=== PATIENT | male | born 1945 | race Caucasian/White ===

== ENCOUNTER 2018-08-14 02:24 | Outpatient (RCR) | payer MEDICARE, BC, SELFPAY ==
[2018-08-14] MEDS: Normal Saline Flush 10 ML SYR IVP (08:50)
[2018-08-14 08:57] LABS: Abs Immature Grans 0.09 k/cumm (0.0-0.09); Absolute Basophil Count 0.04 k/cumm (0.0-0.2); Absolute Eosinophil Count 0.02 k/cumm (0.0-0.7); Absolute Lymphocyte Count 0.54 k/cumm (1.2-3.4); Absolute Monocyte Count 0.78 k/cumm (0.11-0.7); Absolute Neutrophil Count 3.48 k/cumm (1.2-6.7); Basophils % 0.8; Eosinophils % 0.4; HCT 25.4 % (40.0-50.0); HGB 8.9 g/dL (13.5-17.5); Immature Grans % 1.8; Lymphocytes % 10.9; Mean Corpuscular Hemoglobin 30.5 pg (27.0-33.0); Mean Platelet Volume 8.7 fL (8.0-11.0); Monocytes % 15.8; Neutrophils % 70.3; Platelet Count 179 x1000/uL (130-400); RBC 2.92 m/cumm (4.50-6.00); RBC Distribution Width 15.5 % (11.8-14.1); White Blood Cell Count 4.95 k/cumm (4.4-10.8)
[2018-08-14 09:08] LABS: ALT 25 U/L (12-78); AST 25 U/L (15-37); Albumin 2.4 g/dL (3.4-5.0); Alkaline Phosphatase 77 U/L (46-116); BUN 29 mg/dL (7-18); Bilirubin, Total 0.8 mg/dL (0.2-1.0); CREATININE 1.62 mg/dL (0.70-1.30); Calcium 8.6 mg/dL (8.5-10.1); Chloride 104 mmol/L (98-107); Estimated GFR 42.21 (mL/min/1.73m2); Glucose 156 mg/dL (70-100); LDH 349 U/L (85-227); Magnesium 1.6 mg/dL (1.8-2.4); Sodium 139 mmol/L (136-145); Total Protein 6.2 g/dL (6.4-8.2)
[2018-08-14 09:15] LABS: Anisocytosis 1+; Diff Comment RBC Morph Reviewed; Polychromasia Present
== END 2018-09-01 23:59 | disposition home or self-care (01) ==
LOC: INF 02:24
PROVIDERS: PCP Family Medicine; Visit Provider Internal Medicine
DX: C84.48 Peripheral T-cell lymphoma, not elsewhere classified, lymph nodes of multiple sites (principal); Z01.818 Encounter for other preprocedural examination; Z45.2 Encounter for adjustment and management of vascular access device
CPT/HCPCS: 36591; 80053; 83615; 83735; 85025

== ENCOUNTER 2019-05-07 01:53 | Outpatient (RCR) | payer MEDICARE, BC, SELFPAY ==
[2019-05-07] MEDS: Normal Saline Flush 10 ML SYR IVP (11:37)
[2019-05-07] MEDS: Heparin 500 UNITS/5 ML SYRINGE IVP (11:37)
[2019-05-07 11:54] LABS: Abs Immature Grans 0.04 k/cumm (0.0-0.09); Absolute Basophil Count 0.21 k/cumm (0.0-0.2); Absolute Eosinophil Count 0.05 k/cumm (0.0-0.7); Absolute Lymphocyte Count 1.07 k/cumm (1.2-3.4); Absolute Monocyte Count 0.37 k/cumm (0.11-0.7); Absolute Neutrophil Count 6.08 k/cumm (1.2-6.7); Basophils % 2.7; Eosinophils % 0.6; HCT 36.6 % (40.0-50.0); HGB 11.9 g/dL (13.5-17.5); Immature Grans % 0.5; Lymphocytes % 13.7; Mean Corp. HGB Concentration 32.5 g/dL (32.0-36.0); Mean Corpuscular Hemoglobin 30.7 pg (27.0-33.0); Mean Corpuscular Volume 94.6 fL (80-95); Mean Platelet Volume 8.6 fL (8.0-11.0); Monocytes % 4.7; Neutrophils % 77.8; Platelet Count 207 x1000/uL (130-400); RBC 3.87 m/cumm (4.50-6.00); RBC Distribution Width 16.9 % (11.8-14.1); White Blood Cell Count 7.82 k/cumm (4.4-10.8)
[2019-05-07 12:03] LABS: ALT 16 U/L (16-63); AST 13 U/L (15-37); Albumin 3.1 g/dL (3.4-5.0); Alkaline Phosphatase 41 U/L (46-116); Anion Gap 8.2 mmol/L (3-11); BUN 39 mg/dL (7-18); Bilirubin, Total 0.5 mg/dL (0.2-1.0); CO2 26.8 mmol/L (21.0-32.0); CREATININE 2.28 mg/dL (0.70-1.30); Calcium 8.5 mg/dL (8.5-10.1); Chloride 107 mmol/L (98-107); Estimated GFR 28.38 (mL/min/1.73m2); Glucose 108 mg/dL (74-106); LDH 249 U/L (85-227); Magnesium 1.9 mg/dL (1.8-2.4); Potassium 4.2 mmol/L (3.5-5.1); Sodium 142 mmol/L (136-145); Total Protein 5.5 g/dL (6.4-8.2)
== END 2019-06-03 23:59 | disposition home or self-care (01) ==
LOC: INF 01:53
PROVIDERS: PCP Family Medicine; Visit Provider Internal Medicine Hematology & Oncology
DX: C84.48 Peripheral T-cell lymphoma, not elsewhere classified, lymph nodes of multiple sites (principal); Z45.2 Encounter for adjustment and management of vascular access device
CPT/HCPCS: 36591; 80053; 83615; 83735; 85025

== ENCOUNTER 2019-06-16 13:51 | Outpatient (CLI) | payer MEDICARE, BC, SELFPAY | END 2019-06-16 14:11 | PROVIDERS: PCP Family Medicine; Visit Provider Internal Medicine Hematology & Oncology | DX: C84.48 Peripheral T-cell lymphoma, not elsewhere classified, lymph nodes of multiple sites (principal); Z92.21 Personal history of antineoplastic chemotherapy | CPT/HCPCS: 36591; 80053; 83615; 83735; 85025; 93005; 93010 ==

== ENCOUNTER 2019-07-02 02:05 | Outpatient (RCR) | payer MEDICARE, BC, SELFPAY ==
[2019-06-16] MEDS: Normal Saline Flush 10 ML SYR IVP (07:45)
[2019-06-16 08:03] LABS: Abs Immature Grans 0.11 k/cumm (0.0-0.09); Absolute Eosinophil Count 0.02 k/cumm (0.0-0.7); Absolute Lymphocyte Count 1.12 k/cumm (1.2-3.4); Absolute Monocyte Count 1.16 k/cumm (0.11-0.7); Absolute Neutrophil Count 5.85 k/cumm (1.2-6.7); Basophils % 1.2; Eosinophils % 0.2; HCT 37.2 % (40.0-50.0); HGB 12.6 g/dL (13.5-17.5); Immature Grans % 1.3 %; Lymphocytes % 13.4; Mean Corp. HGB Concentration 33.9 g/dL (32.0-36.0); Mean Corpuscular Hemoglobin 32.9 pg (27.0-33.0); Mean Corpuscular Volume 97.1 fL (80-95); Mean Platelet Volume 9.4 fL (8.0-11.0); Monocytes % 13.9; Platelet Count 301 x1000/uL (130-400); RBC 3.83 m/cumm (4.50-6.00); RBC Distribution Width 14.6 % (11.8-14.1); White Blood Cell Count 8.36 k/cumm (4.4-10.8)
[2019-06-16 08:16] LABS: ALT 22 U/L (16-63); AST 12 U/L (15-37); Albumin 3.2 g/dL (3.4-5.0); Alkaline Phosphatase 40 U/L (46-116); Anion Gap 7.3 mmol/L (3-11); BUN 38 mg/dL (7-18); Bilirubin, Total 0.5 mg/dL (0.2-1.0); CO2 27.7 mmol/L (21.0-32.0); CREATININE 2.24 mg/dL (0.70-1.30); Calcium 8.3 mg/dL (8.5-10.1); Chloride 106 mmol/L (98-107); Estimated GFR 28.96 (mL/min/1.73m2); Glucose 108 mg/dL (74-106); LDH 250 U/L (85-227); Magnesium 2.3 mg/dL (1.8-2.4); Potassium 4.1 mmol/L (3.5-5.1); Sodium 141 mmol/L (136-145); Total Protein 5.4 g/dL (6.4-8.2)
[2019-06-24 08:06] LABS: Abs Immature Grans 0.13 k/cumm (0.0-0.09); Absolute Basophil Count 0.04 k/cumm (0.0-0.2); Absolute Eosinophil Count 0.25 k/cumm (0.0-0.7); Absolute Lymphocyte Count 1.31 k/cumm (1.2-3.4); Absolute Monocyte Count 1.12 k/cumm (0.11-0.7); Absolute Neutrophil Count 8.31 k/cumm (1.2-6.7); Basophils % 0.4; Eosinophils % 2.2; HCT 39.1 % (40.0-50.0); HGB 13.3 g/dL (13.5-17.5); Immature Grans % 1.2 %; Lymphocytes % 11.7; Mean Corpuscular Hemoglobin 32.8 pg (27.0-33.0); Mean Corpuscular Volume 96.5 fL (80-95); Mean Platelet Volume 10.2 fL (8.0-11.0); Neutrophils % 74.5; Platelet Count 110 x1000/uL (130-400); RBC 4.05 m/cumm (4.50-6.00); RBC Distribution Width 14.6 % (11.8-14.1); White Blood Cell Count 11.16 k/cumm (4.4-10.8)
[2019-06-24 08:23] LABS: ALT 14 U/L (16-63); AST 7 U/L (15-37); Albumin 3.2 g/dL (3.4-5.0); Alkaline Phosphatase 44 U/L (46-116); Anion Gap 10.4 mmol/L (3-11); BUN 35 mg/dL (7-18); Bilirubin, Total 0.5 mg/dL (0.2-1.0); CO2 24.6 mmol/L (21.0-32.0); CREATININE 2.43 mg/dL (0.70-1.30); Calcium 8.1 mg/dL (8.5-10.1); Chloride 110 mmol/L (98-107); Estimated GFR 26.36 (mL/min/1.73m2); Glucose 115 mg/dL (74-106); LDH 238 U/L (85-227); Magnesium 1.7 mg/dL (1.8-2.4); Potassium 3.8 mmol/L (3.5-5.1); Sodium 145 mmol/L (136-145); Total Protein 5.7 g/dL (6.4-8.2)
[2019-06-24] MEDS: Normal Saline Flush 10 ML SYR IVP (08:25)
[2019-07-02 08:10] LABS: Abs Immature Grans 0.08 k/cumm (0.0-0.09); Absolute Basophil Count 0.02 k/cumm (0.0-0.2); Absolute Eosinophil Count 0.07 k/cumm (0.0-0.7); Absolute Lymphocyte Count 1.01 k/cumm (1.2-3.4); Basophils % 0.2; Eosinophils % 0.6; HCT 38.1 % (40.0-50.0); HGB 13.2 g/dL (13.5-17.5); Immature Grans % 0.7 %; Lymphocytes % 8.4; Mean Corp. HGB Concentration 34.6 g/dL (32.0-36.0); Mean Corpuscular Hemoglobin 32.5 pg (27.0-33.0); Mean Corpuscular Volume 93.8 fL (80-95); Mean Platelet Volume 9.7 fL (8.0-11.0); Monocytes % 8.8; Neutrophils % 81.3; Platelet Count 109 x1000/uL (130-400); RBC 4.06 m/cumm (4.50-6.00); RBC Distribution Width 15.2 % (11.8-14.1); White Blood Cell Count 11.99 k/cumm (4.4-10.8)
[2019-07-02 08:11] LABS: Absolute Monocyte Count 1.06 k/cumm (0.11-0.7); Absolute Neutrophil Count 9.75 k/cumm (1.2-6.7)
[2019-07-02] MEDS: Normal Saline Flush 10 ML SYR IVP (08:11)
[2019-07-02 08:36] LABS: ALT 15 U/L (16-63); AST 8 U/L (15-37); Albumin 3.2 g/dL (3.4-5.0); Alkaline Phosphatase 41 U/L (46-116); Anion Gap 9.8 mmol/L (3-11); BUN 39 mg/dL (7-18); Bilirubin, Total 0.5 mg/dL (0.2-1.0); CO2 23.2 mmol/L (21.0-32.0); CREATININE 2.47 mg/dL (0.70-1.30); Chloride 106 mmol/L (98-107); Estimated GFR 25.87 (mL/min/1.73m2); Glucose 103 mg/dL (74-106); LDH 231 U/L (85-227); Magnesium 1.7 mg/dL (1.8-2.4); Potassium 3.5 mmol/L (3.5-5.1); Sodium 139 mmol/L (136-145); Total Protein 5.4 g/dL (6.4-8.2)
== END 2019-07-04 23:59 | disposition home or self-care (01) ==
LOC: INF 02:05
PROVIDERS: PCP Family Medicine; Visit Provider Internal Medicine Hematology & Oncology
DX: C84.48 Peripheral T-cell lymphoma, not elsewhere classified, lymph nodes of multiple sites (principal); Z45.2 Encounter for adjustment and management of vascular access device
CPT/HCPCS: 36591; 80053; 83615; 83735; 85025

== ENCOUNTER 2019-07-07 02:53 | Outpatient (CLI) | payer MEDICARE, BC, SELFPAY | END 2019-07-07 03:13 | PROVIDERS: PCP Family Medicine; Visit Provider Internal Medicine Hematology & Oncology | DX: C84.48 Peripheral T-cell lymphoma, not elsewhere classified, lymph nodes of multiple sites (principal); Z13.6 Encounter for screening for cardiovascular disorders | CPT/HCPCS: 36591; 80053; 86850; 86900; 86901; 83615; 85025; 93005; 93010 ==

== ENCOUNTER 2019-07-30 01:47 | Outpatient (RCR) | payer MEDICARE, BC, SELFPAY ==
[2019-07-07] MEDS: Normal Saline Flush 10 ML SYR IVP (10:15)
[2019-07-07 10:22] LABS: Abs Immature Grans 0.08 k/cumm (0.0-0.09); Absolute Basophil Count 0.03 k/cumm (0.0-0.2); Absolute Eosinophil Count 0.03 k/cumm (0.0-0.7); Absolute Lymphocyte Count 0.58 k/cumm (1.2-3.4); Absolute Monocyte Count 0.48 k/cumm (0.11-0.7); Basophils % 0.3; Eosinophils % 0.3; HCT 38.9 % (40.0-50.0); HGB 13.5 g/dL (13.5-17.5); Immature Grans % 0.8 %; Lymphocytes % 5.9; Mean Corp. HGB Concentration 34.7 g/dL (32.0-36.0); Mean Corpuscular Hemoglobin 32.5 pg (27.0-33.0); Mean Corpuscular Volume 93.7 fL (80-95); Mean Platelet Volume 8.8 fL (8.0-11.0); Monocytes % 4.8; Neutrophils % 87.9; Platelet Count 176 x1000/uL (130-400); RBC 4.15 m/cumm (4.50-6.00); RBC Distribution Width 15.9 % (11.8-14.1)
[2019-07-07 10:37] LABS: ALT 18 U/L (16-63); AST 12 U/L (15-37); Albumin 3.3 g/dL (3.4-5.0); Alkaline Phosphatase 42 U/L (46-116); Anion Gap 7.9 mmol/L (3-11); BUN 46 mg/dL (7-18); Bilirubin, Total 0.7 mg/dL (0.2-1.0); CO2 24.1 mmol/L (21.0-32.0); Calcium 7.8 mg/dL (8.5-10.1); Chloride 108 mmol/L (98-107); Estimated GFR 26.74 (mL/min/1.73m2); Glucose 104 mg/dL (74-106); LDH 253 U/L (85-227); Potassium 4.1 mmol/L (3.5-5.1); Sodium 140 mmol/L (136-145); Total Protein 5.7 g/dL (6.4-8.2)
[2019-07-14] MEDS: Normal Saline Flush 10 ML SYR IVP (12:15)
[2019-07-14 12:33] LABS: Abs Immature Grans 0.05 k/cumm (0.0-0.09); Absolute Basophil Count 0.02 k/cumm (0.0-0.2); Absolute Eosinophil Count 0.03 k/cumm (0.0-0.7); Absolute Lymphocyte Count 0.51 k/cumm (1.2-3.4); Absolute Monocyte Count 0.25 k/cumm (0.11-0.7); Absolute Neutrophil Count 9.48 k/cumm (1.2-6.7); Basophils % 0.2; Eosinophils % 0.3; HCT 36.3 % (40.0-50.0); HGB 12.5 g/dL (13.5-17.5); Immature Grans % 0.5 %; Lymphocytes % 4.9; Mean Corp. HGB Concentration 34.4 g/dL (32.0-36.0); Mean Corpuscular Hemoglobin 32.1 pg (27.0-33.0); Mean Corpuscular Volume 93.3 fL (80-95); Mean Platelet Volume 9.3 fL (8.0-11.0); Monocytes % 2.4; Neutrophils % 91.7; Platelet Count 150 x1000/uL (130-400); RBC 3.89 m/cumm (4.50-6.00); RBC Distribution Width 15.5 % (11.8-14.1); White Blood Cell Count 10.34 k/cumm (4.4-10.8)
[2019-07-14 13:34] LABS: ALT 16 U/L (16-63); AST 11 U/L (15-37); Albumin 3.1 g/dL (3.4-5.0); Alkaline Phosphatase 40 U/L (46-116); Anion Gap 11.4 mmol/L (3-11); BUN 43 mg/dL (7-18); Bilirubin, Total 0.6 mg/dL (0.2-1.0); CO2 20.6 mmol/L (21.0-32.0); CREATININE 2.66 mg/dL (0.70-1.30); Calcium 7.7 mg/dL (8.5-10.1); Chloride 107 mmol/L (98-107); Estimated GFR 23.75 (mL/min/1.73m2); Glucose 145 mg/dL (74-106); LDH 237 U/L (85-227); Magnesium 1.8 mg/dL (1.8-2.4); Potassium 3.8 mmol/L (3.5-5.1); Sodium 139 mmol/L (136-145); Total Protein 5.3 g/dL (6.4-8.2)
[2019-07-23] MEDS: Normal Saline Flush 10 ML SYR IVP (09:36)
[2019-07-23 09:58] LABS: ALT 14 U/L (16-63); AST 9 U/L (15-37); Albumin 3.2 g/dL (3.4-5.0); Alkaline Phosphatase 45 U/L (46-116); Anion Gap 10.3 mmol/L (3-11); BUN 43 mg/dL (7-18); Bilirubin, Total 0.6 mg/dL (0.2-1.0); CO2 23.7 mmol/L (21.0-32.0); CREATININE 2.51 mg/dL (0.70-1.30); Calcium 7.8 mg/dL (8.5-10.1); Chloride 105 mmol/L (98-107); Glucose 165 mg/dL (74-106); LDH 241 U/L (85-227); Magnesium 2.1 mg/dL (1.8-2.4); Potassium 4.1 mmol/L (3.5-5.1); Sodium 139 mmol/L (136-145); Total Protein 5.4 g/dL (6.4-8.2)
[2019-07-23 10:15] LABS: Absolute Basophil Count 0.02 k/cumm (0.0-0.2); Absolute Eosinophil Count 0.08 k/cumm (0.0-0.7); Absolute Lymphocyte Count 0.59 k/cumm (1.2-3.4); Absolute Neutrophil Count 8.85 k/cumm (1.2-6.7); Basophils % 0.2; Eosinophils % 0.8; HCT 34.7 % (40.0-50.0); Lymphocytes % 5.8; Mean Corp. HGB Concentration 34.6 g/dL (32.0-36.0); Mean Corpuscular Hemoglobin 32.3 pg (27.0-33.0); Mean Corpuscular Volume 93.5 fL (80-95); Monocytes % 4.9; Neutrophils % 87.3; RBC 3.71 m/cumm (4.50-6.00); White Blood Cell Count 10.14 k/cumm (4.4-10.8)
[2019-07-23 10:30] LABS: Platelet Count 82 x1000/uL (130-400)
[2019-07-23 10:31] LABS: Anisocytosis 1+; Diff Comment RBC Morph Reviewed
[2019-07-30] MEDS: Normal Saline Flush 10 ML SYR IVP (08:45)
[2019-07-30 09:00] LABS: Abs Immature Grans 0.22 k/cumm (0.0-0.09); Absolute Basophil Count 0.05 k/cumm (0.0-0.2); Absolute Eosinophil Count 0.05 k/cumm (0.0-0.7); Absolute Lymphocyte Count 1.19 k/cumm (1.2-3.4); Absolute Monocyte Count 1.07 k/cumm (0.11-0.7); Absolute Neutrophil Count 8.18 k/cumm (1.2-6.7); Basophils % 0.5; Eosinophils % 0.5; HCT 35.6 % (40.0-50.0); HGB 12.7 g/dL (13.5-17.5); Lymphocytes % 11.1; Mean Corp. HGB Concentration 35.7 g/dL (32.0-36.0); Mean Corpuscular Volume 92.5 fL (80-95); Mean Platelet Volume 9.3 fL (8.0-11.0); Monocytes % 9.9; Platelet Count 160 x1000/uL (130-400); RBC 3.85 m/cumm (4.50-6.00); RBC Distribution Width 16.2 % (11.8-14.1); White Blood Cell Count 10.76 k/cumm (4.4-10.8)
[2019-07-30 09:19] LABS: ALT 14 U/L (16-63); AST 9 U/L (15-37); Albumin 3.4 g/dL (3.4-5.0); Alkaline Phosphatase 42 U/L (46-116); Anion Gap 11.2 mmol/L (3-11); BUN 39 mg/dL (7-18); Bilirubin, Total 0.6 mg/dL (0.2-1.0); CO2 21.8 mmol/L (21.0-32.0); Calcium 8.2 mg/dL (8.5-10.1); Chloride 109 mmol/L (98-107); Estimated GFR 22.39 (mL/min/1.73m2); Glucose 86 mg/dL (74-106); Sodium 142 mmol/L (136-145); Total Protein 5.6 g/dL (6.4-8.2)
== END 2019-08-02 23:59 | disposition home or self-care (01) ==
LOC: INF 01:47
PROVIDERS: PCP Family Medicine; Visit Provider Internal Medicine Hematology & Oncology
DX: C84.48 Peripheral T-cell lymphoma, not elsewhere classified, lymph nodes of multiple sites (principal); Z45.2 Encounter for adjustment and management of vascular access device
CPT/HCPCS: 36591; 80053; 86850; 86900; 86901; 83615; 83735; 85025

== ENCOUNTER 2019-09-01 08:00 | Outpatient (RCR) | payer MEDICARE, BC, SELFPAY ==
[2019-08-06] MEDS: Heparin 500 UNITS/5 ML SYRINGE IV (10:07)
[2019-08-06] MEDS: Normal Saline Flush 10 ML SYR IVP (10:07)
[2019-08-06 10:24] LABS: Abs Immature Grans 0.08 k/cumm (0.0-0.09); Absolute Basophil Count 0.04 k/cumm (0.0-0.2); Absolute Eosinophil Count 0.01 k/cumm (0.0-0.7); Absolute Monocyte Count 0.46 k/cumm (0.11-0.7); Absolute Neutrophil Count 7.99 k/cumm (1.2-6.7); Basophils % 0.4; Eosinophils % 0.1; HCT 36.7 % (40.0-50.0); HGB 12.5 g/dL (13.5-17.5); Immature Grans % 0.8 %; Lymphocytes % 9.5; Mean Corp. HGB Concentration 34.1 g/dL (32.0-36.0); Mean Corpuscular Hemoglobin 32.2 pg (27.0-33.0); Mean Corpuscular Volume 94.6 fL (80-95); Mean Platelet Volume 9.2 fL (8.0-11.0); Monocytes % 4.9; Neutrophils % 84.3; Platelet Count 290 x1000/uL (130-400); RBC 3.88 m/cumm (4.50-6.00); RBC Distribution Width 17.5 % (11.8-14.1); White Blood Cell Count 9.48 k/cumm (4.4-10.8)
[2019-08-06 10:41] LABS: ALT 16 U/L (16-63); AST 12 U/L (15-37); Albumin 3.4 g/dL (3.4-5.0); Alkaline Phosphatase 38 U/L (46-116); Anion Gap 11.2 mmol/L (3-11); BUN 48 mg/dL (7-18); Bilirubin, Total 0.5 mg/dL (0.2-1.0); CO2 20.8 mmol/L (21.0-32.0); CREATININE 2.45 mg/dL (0.70-1.30); Calcium 8.2 mg/dL (8.5-10.1); Chloride 108 mmol/L (98-107); Estimated GFR 26.12 (mL/min/1.73m2); Glucose 122 mg/dL (74-106); LDH 283 U/L (85-227); Potassium 3.8 mmol/L (3.5-5.1); Sodium 140 mmol/L (136-145); Total Protein 5.7 g/dL (6.4-8.2)
[2019-08-11] MEDS: Normal Saline Flush 10 ML SYR IVP (13:09)
[2019-08-18] MEDS: Normal Saline Flush 10 ML SYR IVP (09:08)
[2019-08-18 09:21] LABS: Abs Immature Grans 0.05 k/cumm (0.0-0.09); Absolute Basophil Count 0.02 k/cumm (0.0-0.2); Absolute Eosinophil Count 0.09 k/cumm (0.0-0.7); Absolute Lymphocyte Count 0.72 k/cumm (1.2-3.4); Absolute Monocyte Count 0.45 k/cumm (0.11-0.7); Absolute Neutrophil Count 8.21 k/cumm (1.2-6.7); Basophils % 0.2; Eosinophils % 0.9; HCT 37.3 % (40.0-50.0); HGB 12.7 g/dL (13.5-17.5); Immature Grans % 0.5 %; Lymphocytes % 7.5; Mean Corpuscular Hemoglobin 32.5 pg (27.0-33.0); Mean Corpuscular Volume 95.4 fL (80-95); Mean Platelet Volume 9.4 fL (8.0-11.0); Monocytes % 4.7; Neutrophils % 86.2; Platelet Count 182 x1000/uL (130-400); RBC 3.91 m/cumm (4.50-6.00); RBC Distribution Width 15.5 % (11.8-14.1); White Blood Cell Count 9.54 k/cumm (4.4-10.8)
[2019-08-18 09:30] LABS: ALT 17 U/L (16-63); AST 11 U/L (15-37); Albumin 3.2 g/dL (3.4-5.0); Alkaline Phosphatase 42 U/L (46-116); Anion Gap 11.5 mmol/L (3-11); BUN 41 mg/dL (7-18); Bilirubin, Total 0.5 mg/dL (0.2-1.0); CO2 21.5 mmol/L (21.0-32.0); CREATININE 2.49 mg/dL (0.70-1.30); Calcium 7.8 mg/dL (8.5-10.1); Chloride 108 mmol/L (98-107); Estimated GFR 25.63 (mL/min/1.73m2); Glucose 133 mg/dL (74-106); LDH 225 U/L (85-227); Magnesium 1.9 mg/dL (1.8-2.4); Sodium 141 mmol/L (136-145); Total Protein 5.6 g/dL (6.4-8.2)
[2019-08-25] MEDS: Normal Saline Flush 10 ML SYR IVP (10:55)
[2019-08-25 11:06] LABS: Abs Immature Grans 0.19 k/cumm (0.0-0.09); Absolute Basophil Count 0.02 k/cumm (0.0-0.2); Absolute Eosinophil Count 0.32 k/cumm (0.0-0.7); Absolute Lymphocyte Count 0.85 k/cumm (1.2-3.4); Absolute Monocyte Count 0.73 k/cumm (0.11-0.7); Absolute Neutrophil Count 7.23 k/cumm (1.2-6.7); Basophils % 0.2; Eosinophils % 3.4; HGB 12.8 g/dL (13.5-17.5); Lymphocytes % 9.1; Mean Corp. HGB Concentration 34.6 g/dL (32.0-36.0); Mean Corpuscular Hemoglobin 32.7 pg (27.0-33.0); Mean Corpuscular Volume 94.6 fL (80-95); Monocytes % 7.8; Neutrophils % 77.5; RBC 3.91 m/cumm (4.50-6.00); RBC Distribution Width 15.3 % (11.8-14.1); White Blood Cell Count 9.34 k/cumm (4.4-10.8)
[2019-08-25 11:22] LABS: ALT 14 U/L (16-63); AST 10 U/L (15-37); Albumin 3.4 g/dL (3.4-5.0); Alkaline Phosphatase 39 U/L (46-116); Anion Gap 10.5 mmol/L (3-11); BUN 42 mg/dL (7-18); Bilirubin, Total 0.7 mg/dL (0.2-1.0); CO2 24.5 mmol/L (21.0-32.0); CREATININE 2.72 mg/dL (0.70-1.30); Calcium 8.2 mg/dL (8.5-10.1); Chloride 106 mmol/L (98-107); Diff Comment PLT Morph Reviewed; Estimated GFR 23.15 (mL/min/1.73m2); Glucose 123 mg/dL (74-106); LDH 242 U/L (85-227); Magnesium 2.3 mg/dL (1.8-2.4); Platelet Count 99 x1000/uL (130-400); RBC Morphology Normal; Sodium 141 mmol/L (136-145); Total Protein 5.8 g/dL (6.4-8.2); Uric Acid 4.7 mg/dL (3.5-7.2)
[2019-09-01] MEDS: Normal Saline Flush 10 ML SYR IVP (10:50)
[2019-09-01 11:18] LABS: Abs Immature Grans 0.13 k/cumm (0.0-0.09); Absolute Basophil Count 0.03 k/cumm (0.0-0.2); Absolute Eosinophil Count 0.09 k/cumm (0.0-0.7); Absolute Lymphocyte Count 1.07 k/cumm (1.2-3.4); Absolute Monocyte Count 0.93 k/cumm (0.11-0.7); Basophils % 0.3; HCT 36.7 % (40.0-50.0); HGB 12.7 g/dL (13.5-17.5); Immature Grans % 1.4 %; Lymphocytes % 11.3; Mean Corp. HGB Concentration 34.6 g/dL (32.0-36.0); Mean Corpuscular Hemoglobin 32.8 pg (27.0-33.0); Mean Corpuscular Volume 94.8 fL (80-95); Monocytes % 9.8; Neutrophils % 76.2; Platelet Count 165 x1000/uL (130-400); RBC 3.87 m/cumm (4.50-6.00); White Blood Cell Count 9.45 k/cumm (4.4-10.8)
[2019-09-01 12:06] LABS: ALT 15 U/L (16-63); AST 10 U/L (15-37); Albumin 3.4 g/dL (3.4-5.0); Alkaline Phosphatase 45 U/L (46-116); Anion Gap 9.7 mmol/L (3-11); BUN 35 mg/dL (7-18); Bilirubin, Total 0.7 mg/dL (0.2-1.0); CO2 22.3 mmol/L (21.0-32.0); CREATININE 2.66 mg/dL (0.70-1.30); Calcium 8.1 mg/dL (8.5-10.1); Chloride 108 mmol/L (98-107); Estimated GFR 23.75 (mL/min/1.73m2); Glucose 120 mg/dL (74-106); LDH 276 U/L (85-227); Magnesium 1.8 mg/dL (1.8-2.4); Potassium 3.7 mmol/L (3.5-5.1); Sodium 140 mmol/L (136-145); Total Protein 5.9 g/dL (6.4-8.2); Uric Acid 4.9 mg/dL (3.5-7.2)
== END 2019-09-02 23:59 | disposition home or self-care (01) ==
LOC: INF 08:00
PROVIDERS: PCP Family Medicine; Visit Provider Internal Medicine Hematology & Oncology
DX: C84.48 Peripheral T-cell lymphoma, not elsewhere classified, lymph nodes of multiple sites (principal); Z45.2 Encounter for adjustment and management of vascular access device
CPT/HCPCS: 36591; 80053; 83615; 83735; 84550; 85025; 93005; 93010

== ENCOUNTER 2019-09-03 00:42 | Outpatient (CLI) | payer MEDICARE, BC, SELFPAY | END 2019-09-03 01:02 | PROVIDERS: PCP Family Medicine; Visit Provider Internal Medicine Hematology & Oncology | DX: R94.31 Abnormal electrocardiogram [ECG] [EKG] (principal); C84.48 Peripheral T-cell lymphoma, not elsewhere classified, lymph nodes of multiple sites | CPT/HCPCS: 93005; 93010 ==

== ENCOUNTER 2019-10-03 04:32 | Outpatient (RCR) | payer MEDICARE, BC, SELFPAY ==
[2019-10-03] MEDS: Normal Saline Flush 10 ML SYR IVP (11:08)
[2019-10-03] MEDS: Heparin 500 UNITS/5 ML SYRINGE IV (11:08)
== END 2019-10-03 23:59 | disposition home or self-care (01) ==
LOC: INF 04:32
PROVIDERS: PCP Family Medicine; Visit Provider Internal Medicine Hematology & Oncology
DX: Z45.2 Encounter for adjustment and management of vascular access device (principal)
CPT/HCPCS: 96523